=== PATIENT | male | born 1970 | race Caucasian/White ===

== ENCOUNTER 2017-03-19 22:37 | Emergency (ER) | payer BC ==
[~2017-03-19] VITALS: Ht 175.3 cm; Wt 83.0 kg
[2017-03-20] MEDS ORDERED: SILVADENE20 GM TP (00:23)
[2017-03-20 00:26] VITALS: BP 121/80
== END 2017-03-20 00:30 | disposition home or self-care (01) ==
LOC: EME 22:37
DX: T21.12XA Burn of first degree of abdominal wall, initial encounter (principal); T22.132A Burn of first degree of left upper arm, initial encounter; X11.8XXA Contact with other hot tap-water, initial encounter
CPT/HCPCS: 99281; 99284